=== PATIENT | male | born 1960 | race African-American/Black ===

== ENCOUNTER → 2017-06-15 | Day surgery (SDC) | payer OTHER ==
[2017-06-01 08:16] VITALS: Ht 172.7 cm; Wt 115.9 kg
--- NOTE | 2017-06-01 09:18 | PAT Medication Instructions ---
Service Date Jun 01, 2017. Current Home Medication List Acetaminophen (Tylenol), 500 MG PO DIRECTED PRN for PRN Aluminum Hydroxide-Mag Carb (Acid Gone), 1 DOSE PO QID PRN for PRN Amlodipine (Norvasc), 5 MG PO QAM Ascorbic Acid (Vitamin C 500 mg), 1 DOSE PO QAM Atenolol (Tenormin), 25 MG PO QAM Azathioprine (Imuran), 50 MG PO QAM Calcium Carbonate (Calcium), 1 TAB PO QAM Certolizumab Pegol (Cimzia), 1 DOSE SC DIRECTED Cholecalciferol (Vitamin D3), 2,000 UNITS PO QAM Cyanocobalamin (Vitamin B12), 1 TAB PO QAM Ferrous Sulfate (Iron), 325 MG PO QAM Folic Acid (Folvite), 1 MG PO DAILY Furosemide (Lasix), 40 MG PO BID Lactobacillus (Acidophilus), 2 TAB PO BID Lisinopril (Zestril), 40 MG PO QAM Meloxicam (Mobic), 15 MG PO QAM PRN for Pain Multivitamin (Multivitamin), 1 TAB PO DAILY Pantoprazole (Protonix), 40 MG PO BID Lurdztonk-Vkkyxecmcnypb-Gqgbuq (Hemorrhoidal), TOP TID Pravastatin Sod (Pravastatin Sodium), 40 MG PO HS Prednisone (Prednisone), 5 MG PO QAM Prednisone (Prednisone), 50 MG PO BID Propylene Glycol-Glycerin (Artificial Tears), 1 DROP OPB BID Pyridoxine (Vitamin B6), 100 MG PO QAM Medication Instructions For Your Scheduled Surgery - Check with surgeon (Dr. Bonilla) for instructions: Meloxicam (Mobic), 15 MG PO QAM PRN for Pain - Check with prescribing physician for instructions: Certolizumab Pegol (Cimzia), 1 DOSE SC DIRECTED Azathioprine (Imuran), 50 MG PO QAM - Hold the following medications 24 hours prior to surgery: Udfizvaix-Heioxorghldam-Wclxwk (Hemorrhoidal), TOP TID - Hold the following medications the morning of surgery: Aluminum Hydroxide-Mag Carb (Acid Gone), 1 DOSE PO QID PRN for PRN Ascorbic Acid (Vitamin C 500 mg), 1 DOSE PO QAM Calcium Carbonate (Calcium), 1 TAB PO QAM Cholecalciferol (Vitamin D3), 2,000 UNITS PO QAM Cyanocobalamin (Vitamin B12), 1 TAB PO QAM Ferrous Sulfate (Iron), 325 MG PO QAM Folic Acid (Folvite), 1 MG PO DAILY Furosemide (Lasix), 40 MG PO BID Lactobacillus (Acidophilus), 2 TAB PO BID Lisinopril (Zestril), 40 MG PO QAM Multivitamin (Multivitamin), 1 TAB PO DAILY Pyridoxine (Vitamin B6), 100 MG PO QAM - Take the following medications the morning of surgery with a sip of water: Propylene Glycol-Glycerin (Artificial Tears), 1 DROP OPB BID Prednisone (Prednisone), 5 MG PO QAM Prednisone (Prednisone), 50 MG PO BID Pantoprazole (Protonix), 40 MG PO BID Atenolol (Tenormin), 25 MG PO QAM Amlodipine (Norvasc), 5 MG PO QAM Acetaminophen (Tylenol), 500 MG PO DIRECTED PRN for PRN (okay to take up to 4 hours prior to surgery if needed) If you have any questions please call us at [phone] or [phone] or [phone]
[~2017-06-15] VITALS: Ht 172.7 cm; Wt 115.9 kg
[~2017-06-15] MED LIST: ALUMCHW PO; AMLO-110 PO; ASCO500C43 PO; ATEN-173 PO; AZAT50TA17 PO; CALC-393 PO; CERTKIT SC; CHOL1000 PO; CYAN100020 PO; FERR1TAB23 PO; FOLI1TAB8 PO; FURO40TA3 PO; LACTTAB7 PO; LIDOCAINE HCL 2% 2 ML VIAL (20MG/ML) ONE; LISI40TA PO; MELO15TA10 PO; MULT-506 PO; PANT40TA PO; PRED-301 PO; PRED50TA PO; PROPDRO5 OPB; PROPOFOL IV EMULSION 10 MG/ML 20 ML VIAL IV ONE; PRVC40 PO; PYRI100T4 PO; TYLOTC500 PO; [UNRECOGNIZED DRUG - CODE] TOP
--- NOTE | 2017-06-15 13:46 | Endo History and Physical ---
History & Physical Date of Service: Jun 15, 2017. Chief Complaint: ULCERATIVE PROCTOID SIGMOIDITIS Referring Physician: RENU CLEVELAND History of Present Illness For flex sig Past Medical History Gastrointestinal Disorder, High Cholesterol, Hypertension Past Surgical History Hx Cardiac Surgery: No Hx Internal Defibrillator: No Hx Pacemaker: No Hx Abdominal Surgery: No Hx Post-Op Nausea and Vomiting: No Hx Cancer Surgery: No Hx Thoracic Surgery: No Hx Orthopedic: Yes (LEFT TKA) Hx Urinary Tract Surgery: No Social History Smoking Status: Former Smoker Hx Substance Use: Yes Hx Alcohol Use: No Allergies Coded Allergies: No Known Allergies (Verified , 06/15/17) Current Medications Reported Home Medications Medications Dose Route/Sig Max Daily Dose Days Date Category Prednisone 50 Mg Tab 50 Mg PO BID 06/01/17 Reported Hemorrhoidal (Mphbkellq-Bdcpgnmgjrzzt-Bnoncq) 1 Cre Cre TOP TID 06/01/17 Reported Folvite (Folic Acid) 1 Mg Tab 1 Mg PO DAILY 06/01/17 Reported Cimzia (Certolizumab Pegol) 200 Mg Kit 1 Dose SC DIRECTED 01/11/17 Reported Vitamin D3 (Cholecalciferol) 1,000 Unit Tab 2,000 Units PO QAM 01/11/17 Reported Vitamin C 500 mg (Ascorbic Acid) 1 Chw Chw 1 Dose PO QAM 01/11/17 Reported Vitamin B12 (Cyanocobalamin) 1,000 Mcg Tab 1 Tab PO QAM 01/11/17 Reported Vitamin B6 (Pyridoxine HCl) 100 Mg Tab 100 Mg PO QAM 01/11/17 Reported Prednisone 5 Mg Tab 5 Mg PO QAM 01/11/17 Reported Pravastatin Sodium (Pravastatin Sod) 40 Mg Tab 40 Mg PO HS 01/11/17 Reported Protonix (Pantoprazole Sodium) 40 Mg Tab 40 Mg PO BID 01/11/17 Reported Multivitamin (Multivitamins) Tab 1 Tab PO DAILY 01/11/17 Reported Mobic (Meloxicam) 15 Mg Tab 15 Mg PO QAM PRN 01/11/17 Reported Zestril (Lisinopril) 40 Mg Tab 40 Mg PO QAM 01/11/17 Reported Lasix (Furosemide) 40 Mg Tab 40 Mg PO BID 01/11/17 Reported Iron (Ferrous Sulfate) 325 Mg Tab 325 Mg PO QAM 01/11/17 Reported Calcium (Calcium Carbonate) 600 Mg Tab 1 Tab PO QAM 01/11/17 Reported Imuran (Azathioprine) 50 Mg Tab 50 Mg PO QAM 01/11/17 Reported Tenormin (Atenolol) 25 Mg Tab 25 Mg PO QAM 01/11/17 Reported Artificial Tears (Propylene Glycol-Glycerin) 1 Skip Skip 1 Drop OPB BID 01/11/17 Reported Norvasc (Amlodipine Besylate) 5 Mg Tab 5 Mg PO QAM 01/11/17 Reported Acidophilus (Lactobacillus) 1 Tab Tab 2 Tab PO BID 01/11/17 Reported Acid Gone (Aluminum Hydroxide-Mag Carb) 1 Chw Chw 1 Dose PO QID PRN 01/11/17 Reported Tylenol (Acetaminophen) 500 Mg Tab 500 Mg PO DIRECTED PRN 01/11/17 Reported Vital Signs Weight (Kilograms): 115.91 Height (Feet): 5 Height (Inches): 8 Date Time Temp Pulse Resp B/P (MAP) Pulse Ox O2 Delivery O2 Flow Rate FiO2 06/15/17 13:20 36.5 76 16 147/87 (107) 96 Room Air Physical Exam General Appearance: + obese Respiratory/Chest: Respiratory effort: no dyspnea Cardiovascular: Heart Auscultation: RRR Abdomen: Inspection & Palpation: soft Assessment and Plan Active UC for disease assessment
--- NOTE | 2017-06-15 14:13 | Discharge Instructions ---
Endoscopy Patient Instructions Date / Procedure(s) Performed Jun 15, 2017. Flex Sig Allergy Information Coded Allergies: No Known Allergies (Verified , 06/15/17) Discharge Date / Findings Jun 15, 2017. Mild colitis to 30 cm Medication Instructions Restart Stopped Medication(s): resume meds Reported Home Medications Medications Dose Route/Sig Max Daily Dose Days Date Category Prednisone 50 Mg Tab 50 Mg PO BID 06/01/17 Reported Hemorrhoidal (Tinjvfuli-Vdfegehewqljr-Wofyri) 1 Cre Cre TOP TID 06/01/17 Reported Folvite (Folic Acid) 1 Mg Tab 1 Mg PO DAILY 06/01/17 Reported Cimzia (Certolizumab Pegol) 200 Mg Kit 1 Dose SC DIRECTED 01/11/17 Reported Vitamin D3 (Cholecalciferol) 1,000 Unit Tab 2,000 Units PO QAM 01/11/17 Reported Vitamin C 500 mg (Ascorbic Acid) 1 Chw Chw 1 Dose PO QAM 01/11/17 Reported Vitamin B12 (Cyanocobalamin) 1,000 Mcg Tab 1 Tab PO QAM 01/11/17 Reported Vitamin B6 (Pyridoxine HCl) 100 Mg Tab 100 Mg PO QAM 01/11/17 Reported Prednisone 5 Mg Tab 5 Mg PO QAM 01/11/17 Reported Pravastatin Sodium (Pravastatin Sod) 40 Mg Tab 40 Mg PO HS 01/11/17 Reported Protonix (Pantoprazole Sodium) 40 Mg Tab 40 Mg PO BID 01/11/17 Reported Multivitamin (Multivitamins) Tab 1 Tab PO DAILY 01/11/17 Reported Mobic (Meloxicam) 15 Mg Tab 15 Mg PO QAM PRN 01/11/17 Reported Zestril (Lisinopril) 40 Mg Tab 40 Mg PO QAM 01/11/17 Reported Lasix (Furosemide) 40 Mg Tab 40 Mg PO BID 01/11/17 Reported Iron (Ferrous Sulfate) 325 Mg Tab 325 Mg PO QAM 01/11/17 Reported Calcium (Calcium Carbonate) 600 Mg Tab 1 Tab PO QAM 01/11/17 Reported Imuran (Azathioprine) 50 Mg Tab 50 Mg PO QAM 01/11/17 Reported Tenormin (Atenolol) 25 Mg Tab 25 Mg PO QAM 01/11/17 Reported Artificial Tears (Propylene Glycol-Glycerin) 1 Skip Skip 1 Drop OPB BID 01/11/17 Reported Norvasc (Amlodipine Besylate) 5 Mg Tab 5 Mg PO QAM 01/11/17 Reported Acidophilus (Lactobacillus) 1 Tab Tab 2 Tab PO BID 01/11/17 Reported Acid Gone (Aluminum Hydroxide-Mag Carb) 1 Chw Chw 1 Dose PO QID PRN 01/11/17 Reported Tylenol (Acetaminophen) 500 Mg Tab 500 Mg PO DIRECTED PRN 01/11/17 Reported Provider Instructions Activity Restrictions - No exercising or heavy lifting for 24 hours. - Do not drink alcohol the day of the procedure. - Do not drive a car or operate machinery until the day after the procedure. - Do not make any important decisions or sign important papers in 24 hours after the procedure. Following Day: - Return to full activity which may include returning to work/school. Diet Start your diet with liquids and light foods (jello, soup, juice, toast). Then eat your usual diet if not nauseated. Treatment For Common After Affects For mild abdominal pain, bloating, or excessive gas: - Rest - Eat lightly - Lie on right side Follow-Up Information Follow-up with RENU CLEVELAND as scheduled Anesthesia Information What You Should Know You have had a procedure that required some medicine to reduce anxiety and discomfort. This treatment is called moderate sedation. After receiving the treatment, you may be sleepy, but you will be able to breathe on your own. The effects of the treatment may last for several hours. Follow these instructions along with Activity/Diet recommendations noted above: * Do NOT do anything where dizziness or clumsiness would be dangerous. * Rest quietly at home today, then you can be up and about tomorrow. * Have a responsible person stay with you the rest of today. * You may have had an I.V. today. If so, you may take the dressing off later today. Recommendations Call your doctor if: * Trouble breathing * Continuous vomiting for more than 24 hours * Temperature above 101 degrees * Severe abdominal pain or bloating * Pain not relieved by pain medicine ordered * There is increased drainage or redness from any incision * A large amount of rectal bleeding greater than 2-3 tablespoons. (If you had a polyp/s removed or have hemorrhoids, a small amount of blood - from the rectum is to be expected.) * You have any unanswered questions or concerns. IN THE EVENT OF A SERIOUS EMERGENCY, GO TO THE NEAREST EMERGENCY ROOM Your discharge instructions were prepared by provider Dagoberto Bonilla. Patient Instructions Signature Page Rod Crystal Patient (or Guardian) Signature/Date: I have read and understand the instructions given to me by my caregivers. Caregiver/RN/Doctor Signature/Date: The above-named patient and/or guardian has received patient instructions on this date. + Original Patient Signature Page (only) stays with chart. Please make copy for patient.
--- NOTE | 2017-06-15 14:25 | GI REPORT ---
Procedure Date: 06/15/2017 1:49 PM Procedure: Flexible Sigmoidoscopy Indications: Chronic ulcerative proctosigmoiditis, Disease activity assessment of chronic ulcerative proctosigmoiditis, Assess therapeutic response to therapy of chronic ulcerative proctosigmoiditis Medicines: Propofol total dose 280 mg IV, Lidocaine 40 mg IV Complications: No immediate complications. Estimated Blood Loss: Estimated blood loss: none. Procedure: Pre-Anesthesia Assessment: - Prior to the procedure, a History and Physical was performed, and patient medications, allergies and sensitivities were reviewed. The patient's tolerance of previous anesthesia was reviewed. - The risks and benefits of the procedure and the sedation options and risks were discussed with the patient. All questions were answered and informed consent was obtained. After obtaining informed consent, the endoscope was passed under direct vision. Throughout the procedure, the patient's blood pressure, pulse, and oxygen saturations were monitored continuously. The scope was introduced through the anus and advanced to the splenic flexure. The flexible sigmoidoscopy was accomplished without difficulty. The patient tolerated the procedure well. The quality of the bowel preparation was fair. Findings: A diffuse area of mildly atrophic and granular mucosa was found in the rectum, in the sigmoid colon and in the distal descending colon. Impression: - Preparation of the colon was fair. - Atrophic and granular mucosa in the rectum, in the sigmoid colon and in the distal descending colon. - No specimens collected. Recommendation: - Discharge patient to home (ambulatory). - Continue present medications. - Return to GI office as previously scheduled. Dagoberto Bonilla M.D. Dagoberto Bonilla MD 06/15/2017 2:24:35 PM This report has been signed electronically. Note Initiated On: 06/15/2017 1:49 PM I attest to the content of the Intraoperative Record and orders documented therein, exceptions below
--- NOTE | 2017-06-15 14:27 | Anesthesiology Progress Note ---
Anesthesia Post Op Note Date & Time Jun 15, 2017 at 14:26 Vital Signs Pain Intensity: 4 Vital Signs Past 12 Hours Date Time Temp Pulse Resp B/P (MAP) Pulse Ox O2 Delivery O2 Flow Rate FiO2 06/15/17 14:21 70 16 131/84 (100) 96 Room Air 06/15/17 14:10 81 16 127/82 (97) 93 Room Air 06/15/17 13:20 36.5 76 16 147/87 (107) 96 Room Air Notes Mental Status: alert / awake / arousable, participated in evaluation Pt Amnestic to Procedure: Yes Nausea / Vomiting: adequately controlled Pain: adequately controlled Airway Patency, RR, SpO2: stable & adequate BP & HR: stable & adequate Hydration State: stable & adequate Anesthetic Complications: no major complications apparent
[2017-06-15 14:30] VITALS: BP 135/90; PULSE 76; O2SAT 93
== END | disposition home or self-care (01) ==
LOC: C.GI 12:41
PROVIDERS: ATTEND Internal Medicine Gastroenterology
DX: K51.30 Ulcerative (chronic) rectosigmoiditis without complications (principal); K62.89 Other specified diseases of anus and rectum; I10 Essential (primary) hypertension; Z96.652 Presence of left artificial knee joint; Z87.891 Personal history of nicotine dependence; Z79.899 Other long term (current) drug therapy

== ENCOUNTER 2021-10-15 06:55 | Observation (INO) ==
--- NOTE | 2021-06-22 16:04 | History & Physical Report ---
Date of Service June 22, 2021 Assessment & Plan (1) Osteoarthritis of right knee: Plan: Schedule a right TKA for 06.25.21. All potential risks, benefits, complications, alternatives, and rehab have been discussed with the patient and he wishes to proceed. Plan for ASA 81 mg BID x 4 wks for post op DVT prophylaxis. (2) Genu varum of right lower extremity: History of Present Illness Chief Complaint: right knee pain Primary Care Provider: NO PCP This is a patient with a hx of chronic right knee pain. He has been treated conservatively for right knee DJD for many years. The conservative tx's are no longer helping his knee pain. He is now being set up for surgical tx. Allergies Allergy/AdvReac Type Severity Reaction Status Date / Time No Known Allergies Allergy Verified 06/15/17 13:16 Home Medications Medication Instructions Recorded Confirmed Type Lactobacillus acidophilus 2,000 mmu cells PO BID 06/22/21 06/22/21 History aluminum hydrox-magnesium carb 160 2 tab PO QID PRN 06/22/21 06/22/21 History mg-105 mg chewable tablet (Gaviscon Extra Strength) ascorbic acid (vitamin C) 500 mg 500 mg PO DAILY 06/22/21 06/22/21 History tablet (Vitamin C) aspirin 81 mg tablet 81 mg PO DAILY 06/22/21 06/22/21 History atenolol 25 mg tablet 25 mg PO BID 06/22/21 06/22/21 History azathioprine 50 mg tablet (Imuran) 100 mg PO DAILY 06/22/21 06/22/21 History bumetanide 2 mg tablet 2 mg PO DAILY 06/22/21 06/22/21 History calcium 600 mg capsule 600 mg PO DAILY 06/22/21 06/22/21 History celecoxib 200 mg capsule (Celebrex) 200 mg PO BID 06/22/21 06/22/21 History certolizumab pegol (Cimzia) 200 mg SUBCUT UD 06/22/21 06/22/21 History cholecalciferol (vitamin D3) 25 50 mcg PO DAILY 06/22/21 06/22/21 History mcg (1,000 unit) tablet (Vitamin D3) cyanocobalamin (vitamin B-12) 1,000 mcg SUBLINGUAL DAILY 06/22/21 06/22/21 History 1,000 mcg sublingual tablet ferrous sulfate 325 mg (65 mg 325 mg PO DAILY 06/22/21 06/22/21 History iron) tablet folic acid 1 mg tablet 1 mg PO DAILY 06/22/21 06/22/21 History ketotifen fumarate 0.025 % (0.035 1 drp OPHTHALMIC (EYE) BID PRN 06/22/21 06/22/21 History %) eye drops loratadine 10 mg tablet 10 mg PO DAILY 06/22/21 06/22/21 History losartan 25 mg tablet 25 mg PO DAILY 06/22/21 06/22/21 History multivitamin 1 tab PO DAILY 06/22/21 06/22/21 History omeprazole 40 mg capsule,delayed 40 mg PO BID 06/22/21 06/22/21 History release pravastatin 40 mg tablet 40 mg PO HS 06/22/21 06/22/21 History pyridoxine (vitamin B6) 100 mg 100 mg PO DAILY 06/22/21 06/22/21 History tablet (Vitamin B-6) Past Med/Surg History Medical History Eye disorder GERD (gastroesophageal reflux disease) Hyperlipidemia Hypertension Inmate in correctional facility Obesity Onychomycosis Osteoarthritis Pernicious anemia Rhinitis Sciatica Ulcerative colitis Surgical History Surgical history unknown Social History Smoking Status: Unknown if ever smoked Current Living Situation: Other Physical Exam Constitutional: well developed and well nourished; no acute distress ENMT: external ear and nose normal, oropharynx normal Neck: trachea midline Respiratory: normal respiratory effort, lungs clear to auscultation Cardiovascular: Rate/Rhythm: regular rate and regular rhythm Gastrointestinal (Abdomen): normal bowel sounds, soft, nontender, no hepatosplenomegaly Musculoskeletal: Knee: + knee ROM with crepitation (right), + joint line tenderness (right medial and lateral joint lines) and + varus alignment (right); no skin erythema and no ecchymosis Skin: no rashes, warm and dry Trauma: no evidence of skin trauma Neurologic: normal touch/pain/proprioception Psychiatric: A+Ox3, euthymic affect Speech: normal rate/rhythm/volume of speech Lymphatic: no cervical or axillary lymphadenopathy
--- NOTE | 2021-06-23 14:09 | Anesthesiology Consultation ---
Date of Service June 23, 2021 Assessment & Plan (1) Encounter for pre-operative examination: Chart Review Chart Review: Pending: Refer to Additional Notes / Consult section (cardiac clearance ([facility] setting up), preop labs results and preop Covid testing results ) and Patient NOT seen in Pre Admission Testing - Discussed preop EKG with Dr. Laird (TWI noted in inferior and anterolateral leads- worse from previous EKGs)- will need cardiac clearance prior to surgery. Discussed with RENU Sanders- will send over cardio clearance request form. [facility] will set up cardiac clearance once approved by [facility]. Did request [facility] call us with date of cardiac clearance appt. Pt will need postponed for surgery (unable to get cardio appt prior to 06/25/21). Surgeon's office was informed- did instruct surgeon's office to call [facility] once patient's 06/25/21 surgery was officially cancelled. -Pt had preop labs drawn 06/21/21- results still pending- will need results prior to new surgery date in order for patient to proceed with surgery. Per nursing assessment 06/22/21, patient resides at [facility]. No known recent travel. No known Covid positive exposures or Covid related symptoms. No known Covid infection in the past 90 days. Pt is fully vaccinated for Covid. Pt will need Covid testing done 2-4 days prior to surgery- will await results. Consults Requested cardiac (secondary to abnormal EKG ) History Surgery Operation Date: 06/25/21 09:05 Proposed Procedures p Right Total Knee Arthroplasty - Ben Kolb DO Height/Weight Height: 5 ft 8 in Weight: 140.614 kg Allergies Allergy/AdvReac Type Severity Reaction Status Date / Time No Known Allergies Allergy Verified 06/15/17 13:16 Medications Home Medications Medication Instructions Recorded Confirmed Last Taken Lactobacillus acidophilus 2,000 mmu cells PO BID 06/22/21 06/22/21 Unknown aluminum hydrox-magnesium carb 160 2 tab PO QID PRN 06/22/21 06/22/21 Unknown mg-105 mg chewable tablet (Gaviscon Extra Strength) ascorbic acid (vitamin C) 500 mg 500 mg PO DAILY 06/22/21 06/22/21 Unknown tablet (Vitamin C) aspirin 81 mg tablet 81 mg PO DAILY 06/22/21 06/22/21 Unknown atenolol 25 mg tablet 25 mg PO BID 06/22/21 06/22/21 Unknown azathioprine 50 mg tablet (Imuran) 100 mg PO DAILY 06/22/21 06/22/21 Unknown bumetanide 2 mg tablet 2 mg PO DAILY 06/22/21 06/22/21 Unknown calcium 600 mg capsule 600 mg PO DAILY 06/22/21 06/22/21 Unknown celecoxib 200 mg capsule (Celebrex) 200 mg PO BID 06/22/21 06/22/21 Unknown certolizumab pegol (Cimzia) 200 mg SUBCUT UD 06/22/21 06/22/21 Unknown cholecalciferol (vitamin D3) 25 50 mcg PO DAILY 06/22/21 06/22/21 Unknown mcg (1,000 unit) tablet (Vitamin D3) cyanocobalamin (vitamin B-12) 1,000 mcg SUBLINGUAL DAILY 06/22/21 06/22/21 Unkno wn 1,000 mcg sublingual tablet ferrous sulfate 325 mg (65 mg 325 mg PO DAILY 06/22/21 06/22/21 Unknown iron) tablet folic acid 1 mg tablet 1 mg PO DAILY 06/22/21 06/22/21 Unknown ketotifen fumarate 0.025 % (0.035 1 drp OPHTHALMIC (EYE) BID PRN 06/22/21 06/22/21 Unknown %) eye drops loratadine 10 mg tablet 10 mg PO DAILY 06/22/21 06/22/21 Unknown losartan 25 mg tablet 25 mg PO DAILY 06/22/21 06/22/21 Unknown multivitamin 1 tab PO DAILY 06/22/21 06/22/21 Unknown omeprazole 40 mg capsule,delayed 40 mg PO BID 06/22/21 06/22/21 Unknown release pravastatin 40 mg tablet 40 mg PO HS 06/22/21 06/22/21 Unknown pyridoxine (vitamin B6) 100 mg 100 mg PO DAILY 06/22/21 06/22/21 Unknown tablet (Vitamin B-6) Past Medical History Medical History Eye disorder GERD (gastroesophageal reflux disease) Hyperlipidemia Hypertension Inmate in correctional facility Obesity Onychomycosis Osteoarthritis Pernicious anemia Rhinitis Sciatica Ulcerative colitis Past Surgical History Surgical History Surgical history unknown Social History Smoking Status: Unknown if ever smoked Testing Electrocardiogram Date: 06/17/21 Junctional rhythm at 65 bpm. T wave abnormality, consider inferior and anterolateral ischemia unconfirmed Chest X-Ray Date: 06/16/21 Findings: + NAD
--- NOTE | 2021-10-12 13:02 | Anesthesiology Consultation ---
Date of Service October 12, 2021 Assessment & Plan (1) Encounter for pre-operative examination: Plan - check BSG am DOS. - awaiting cardiology clearance records, previously arranged per 06/23/21 anesthesia consult. - COVID screening: Per billet header on 10/05/2021: Travel screen-inmate, no known COVID-19 positive contacts or current COVID-19 related symptoms in past 2 weeks. Pt vaccinated. Surgeon arranging preop COVID testing, scheduled 10/13/2021. Awaiting results. Chart Review Chart Review: Pending: Refer to Additional Notes / Consult section and Patient NOT seen in Pre Admission Testing History Surgery Operation Date: 10/15/21 07:15 Proposed Procedures p Right Total Knee Arthroplasty - Ben Kolb DO Height/Weight Height: 5 ft 8 in Weight: 140.614 kg Allergies Allergy/AdvReac Type Severity Reaction Status Date / Time No Known Allergies Allergy Verified 06/15/17 13:16 Medications Home Medications Medication Instructions Recorded Confirmed Last Taken Lactobacillus acidophilus 2,000 mmu cells PO BID 06/22/21 10/05/21 Unknown aluminum hydrox-magnesium carb 160 2 tab PO QID PRN REFLUX 06/22/21 10/05/21 Unknown mg-105 mg chewable tablet (Gaviscon Extra Strength) ascorbic acid (vitamin C) 500 mg 500 mg PO QAM 06/22/21 10/05/21 Unknown tablet (Vitamin C) aspirin 81 mg tablet 81 mg PO QAM 06/22/21 10/05/21 Unknown atenolol 25 mg tablet 25 mg PO BID 06/22/21 10/05/21 Unknown azathioprine 50 mg tablet (Imuran) 100 mg PO QAM 06/22/21 10/05/21 Unknown bumetanide 2 mg tablet 2 mg PO QAM 06/22/21 10/05/21 Unknown calcium 600 mg capsule 600 mg PO QAM 06/22/21 10/05/21 Unknown celecoxib 200 mg capsule (Celebrex) 200 mg PO BID 06/22/21 10/05/21 Unknown cholecalciferol (vitamin D3) 25 50 mcg PO QAM 06/22/21 10/05/21 Unknown mcg (1,000 unit) tablet (Vitamin D3) cyanocobalamin (vitamin B-12) 1,000 mcg sublingual QAM 06/22/21 10/05/21 Unknown 1,000 mcg sublingual tablet ferrous sulfate 325 mg (65 mg 325 mg PO QAM 06/22/21 10/05/21 Unknown iron) tablet folic acid 1 mg tablet 1 mg PO QAM 06/22/21 10/05/21 Unknown ketotifen fumarate 0.025 % (0.035 1 drp ophthalmic (eye) BID PRN 06/22/21 10/05/21 Unknown %) eye drops NEEDED loratadine 10 mg tablet 10 mg PO QAM 06/22/21 10/05/21 Unknown losartan 25 mg tablet 25 mg PO QAM 06/22/21 10/05/21 Unknown multivitamin 1 tab PO QAM 06/22/21 10/05/21 Unknown pravastatin 40 mg tablet 40 mg PO HS 06/22/21 10/05/21 Unknown pyridoxine (vitamin B6) 100 mg 100 mg PO QAM 06/22/21 10/05/21 Unknown tablet (Vitamin B-6) certolizumab pegol (Cimzia) 400 mg subcut Q21D 10/05/21 10/05/21 Unknown metformin 850 mg tablet 850 mg PO QAM 10/05/21 10/05/21 Unknown pantoprazole 40 mg tablet,delayed 40 mg PO BID 10/05/21 10/05/21 Unknown release Past Medical History Medical History Diabetes mellitus, type 2 niddm Eye disorder GERD (gastroesophageal reflux disease) Hyperlipidemia Hypertension Inmate in correctional facility Obesity Onychomycosis Osteoarthritis Pernicious anemia Rhinitis Sciatica Ulcerative colitis Past Family History Family History Other Family history unknown Past Surgical History Surgical History Surgical history unknown Social History Smoking Status: Unknown if ever smoked Testing Laboratory Results 10/04/2021 WBC: 6.4 H/H: 14/45 PLATELETS: 176 SODIUM: 141 POTASSIUM: 4 CHLORIDE: 102 CO2: 29 BUN: 15 CREATININE: 1.2 GLUCOSE: 100 PT: 11.4 PTT: 34.3 INR: 1 A1: 6.3% UA: 1+ protein Electrocardiogram Date: 03/24/22 Junctional rhythm, rate 65 bpm T wave abnormality, consider inferior ischemia T wave abnormality, consider anterolateral ischemia Chest X-Ray Date: 06/16/21 Findings: + NAD
--- NOTE | 2021-10-13 16:48 | History & Physical Report ---
Date of Service October 13, 2021 Assessment & Plan (1) Osteoarthritis of right knee: Plan: Schedule a right TKA for 10.13.21. All potential risks, benefits, complications, alternatives, and rehab have been discussed with the patient and he wishes to proceed. Plan for ASA 81 mg BID x 4 wks for post op DVT prophylaxis. (2) Genu varum of right lower extremity: History of Present Illness Chief Complaint: Right knee pain Primary Care Provider: NO PCP This is a patient with a hx of chronic right knee pain. He has been treated conservatively for right knee DJD for many years. The conservative tx's are no longer helping his knee pain. He is now being set up for surgical tx. Allergies Allergy/AdvReac Type Severity Reaction Status Date / Time No Known Allergies Allergy Verified 06/15/17 13:16 Home Medications Medication Instructions Recorded Confirmed Type Lactobacillus acidophilus 2,000 mmu cells PO BID 06/22/21 10/05/21 History aluminum hydrox-magnesium carb 160 2 tab PO QID PRN REFLUX 06/22/21 10/05/21 History mg-105 mg chewable tablet (Gaviscon Extra Strength) ascorbic acid (vitamin C) 500 mg 500 mg PO QAM 06/22/21 10/05/21 History tablet (Vitamin C) aspirin 81 mg tablet 81 mg PO QAM 06/22/21 10/05/21 History atenolol 25 mg tablet 25 mg PO BID 06/22/21 10/05/21 History azathioprine 50 mg tablet (Imuran) 100 mg PO QAM 06/22/21 10/05/21 History bumetanide 2 mg tablet 2 mg PO QAM 06/22/21 10/05/21 History calcium 600 mg capsule 600 mg PO QAM 06/22/21 10/05/21 History celecoxib 200 mg capsule (Celebrex) 200 mg PO BID 06/22/21 10/05/21 History cholecalciferol (vitamin D3) 25 50 mcg PO QAM 06/22/21 10/05/21 History mcg (1,000 unit) tablet (Vitamin D3) cyanocobalamin (vitamin B-12) 1,000 mcg sublingual QAM 06/22/21 10/05/21 History 1,000 mcg sublingual tablet ferrous sulfate 325 mg (65 mg 325 mg PO QAM 06/22/21 10/05/21 History iron) tablet folic acid 1 mg tablet 1 mg PO QAM 06/22/21 10/05/21 History ketotifen fumarate 0.025 % (0.035 1 drp ophthalmic (eye) BID PRN 06/22/21 10/05/21 History %) eye drops NEEDED loratadine 10 mg tablet 10 mg PO QAM 06/22/21 10/05/21 History losartan 25 mg tablet 25 mg PO QAM 06/22/21 10/05/21 History multivitamin 1 tab PO QAM 06/22/21 10/05/21 History pravastatin 40 mg tablet 40 mg PO HS 06/22/21 10/05/21 History pyridoxine (vitamin B6) 100 mg 100 mg PO QAM 06/22/21 10/05/21 History tablet (Vitamin B-6) certolizumab pegol (Cimzia) 400 mg subcut Q21D 10/05/21 10/05/21 History metformin 850 mg tablet 850 mg PO QAM 10/05/21 10/05/21 History pantoprazole 40 mg tablet,delayed 40 mg PO BID 10/05/21 10/05/21 History release Past Med/Surg History Medical History Diabetes mellitus, type 2 niddm Eye disorder GERD (gastroesophageal reflux disease) Hyperlipidemia Hypertension Inmate in correctional facility Obesity Onychomycosis Osteoarthritis Pernicious anemia Rhinitis Sciatica Ulcerative colitis Surgical History Surgical history unknown Family History Other Family history unknown Social History Smoking Status: Unknown if ever smoked Preferred Language: Persian Fur Blower Required: No Current Living Situation: Other Current Living Situation Comment: [facility] Physical Exam Constitutional: well developed and well nourished; no acute distress ENMT: external ear and nose normal, oropharynx normal Neck: trachea midline Respiratory: normal respiratory effort, lungs clear to auscultation Cardiovascular: Rate/Rhythm: regular rate and regular rhythm Gastrointestinal (Abdomen): normal bowel sounds, soft, nontender, no hepatosplenomegaly Musculoskeletal: Knee: + knee ROM with crepitation (right), + joint line tenderness (right medial and lateral joint lines) and + varus alignment (right); no skin erythema and no ecchymosis Skin: no rashes, warm and dry Trauma: no evidence of skin trauma Neurologic: normal touch/pain/proprioception Psychiatric: A+Ox3, euthymic affect Speech: normal rate/rhythm/volume of speech Lymphatic: no cervical or axillary lymphadenopathy
[~2021-10-15 06:55] MED LIST changes: +ACETAMINOPHEN 500 MG TAB PO SCH; -ALUMCHW PO; -AMLO-110 PO; -ASCO500C43 PO; -ATEN-173 PO; -AZAT50TA17 PO; +BUPIVACAINE 0.5 % 5 MG/1 ML PF 10ML VIAL ONE; -CALC-393 PO; -CERTKIT SC; -CHOL1000 PO; -CYAN100020 PO; +CeleBREX 200 MG CAP PO SCH; +FAMOTIDINE 20 MG TAB PO SCH; -FERR1TAB23 PO; -FOLI1TAB8 PO; -FURO40TA3 PO; +GABAPENTIN 600 MG DOSE PO SCH; -LACTTAB7 PO; -LIDOCAINE HCL 2% 2 ML VIAL (20MG/ML) ONE; -LISI40TA PO; +LR 500ML BOLUS, THEN 15ML/HR IV SCH; -MELO15TA10 PO; +METOCLOPRAMIDE HCL 10 MG TABLET PO SCH; -MULT-506 PO; -PANT40TA PO; -PRED-301 PO; -PRED50TA PO; -PROPDRO5 OPB; -PROPOFOL IV EMULSION 10 MG/ML 20 ML VIAL IV ONE; -PRVC40 PO; -PYRI100T4 PO; +ROPIVACAINE 0.5% 5 MG/ML 30 ML VIAL ONE; +ROPIVACAINE 0.5% HCL/PF 150 MG, BUPIVACAINE 0.75% MPF 20 ML, EPINEPHrine 30MG/30ML (OR ... INFIL SCH; +TRANEXAMIC ACID 1,000 MG **IV Intra-op IV SCH; +TRANEXAMIC ACID 1,000 MG **IV Pre-op IV SCH; -TYLOTC500 PO; -[UNRECOGNIZED DRUG - CODE] TOP; +oxyCODONE HCL 10 MG TABCR (OxyCONTIN) PO SCH
[2021-10-15] MEDS ORDERED: ceFAZolin 330 MG/ML 1 GM VIAL ONE (07:02)
[2021-10-15] MEDS ORDERED: ORTHO JOINT ANESTHETIC ONE (07:02)
--- NOTE | 2021-10-15 07:22 | History & Physical Bridge Note ---
Date of Service October 15, 2021 History & Physical Bridge Note I have examined the patient, reviewed the History & Physical and in the interval since the performance of the History & Physical I have noted the following changes of clinical significance: no changes noted with patient condition. Day of surgery changed to 10/15/2021.
[2021-10-15] MEDS ORDERED: MIDAZOLAM HCL 1 MG/ML 2ML VIAL ONE (07:39)
[2021-10-15] MEDS ORDERED: fentaNYL citrate 100 MCG/2 ML VIAL ONE (07:39)
[2021-10-15] MEDS ORDERED: KETAMINE 50 MG/5 ML SYRINGE ONE (07:40)
[2021-10-15] MEDS ORDERED: ATROPINE SULFATE 0.1 MG/ML 10ML SYR IV PRN (08:35)
[2021-10-15] MEDS ORDERED: ONDANSETRON INJ 2 MG/ML 2 ML VIAL IV PRN (08:35)
[2021-10-15] MEDS ORDERED: HYDROmorphone INJ 1 MG/ML SYRINGE IV PRN (08:35)
[2021-10-15] MEDS ORDERED: KETOROLAC 30 MG/ML VIAL IV PRN (08:35)
[2021-10-15] MEDS ORDERED: ePHEDrine sulfate 50 MG/ML AMP IV PRN (08:35)
[2021-10-15] MEDS ORDERED: PHENYLEPHRINE 100MCG/ML 5ML SYR ONE (09:13)
[2021-10-15] MEDS ORDERED: ONDANSETRON INJ 2 MG/ML 2 ML VIAL ONE (09:13)
[2021-10-15] MEDS ORDERED: LIDOCAINE 2% MPF LOCAL 5 ML VIAL INFIL ONE (09:13)
[2021-10-15] MEDS ORDERED: GLYCOPYRROLATE 0.2 MG/ML VIAL ONE (09:13)
[2021-10-15] MEDS ORDERED: PROPOFOL IV EMULSION 10 MG/ML 20 ML VIAL IV ONE ×4 (09:13→11:41)
[2021-10-15] MEDS ORDERED: PROPOFOL IV EMULSION 10 MG/ML 100 ML VIAL IV ONE (10:20)
[2021-10-15] MEDS ORDERED: PHENYLEPHRINE HCL 10 MG/ML VIAL ONE (11:51)
[2021-10-15] MEDS ORDERED: ePHEDrine sulfate 50 MG/ML AMP ONE (11:51)
[2021-10-15] MEDS ORDERED: SODIUM CHLORIDE 0.9% INJ 10 ML VIAL ONE (11:52)
[2021-10-15] MEDS ORDERED: bisacodyL 10 MG SUPP PR PRN (13:00)
[2021-10-15] MEDS ORDERED: NALOXONE HCL 0.4 MG/1 ML VIAL/CARP IV PRN (13:00)
[2021-10-15] MEDS ORDERED: MAGNESIUM HYDROXIDE SUSP 30 ML UDC PO PRN (13:00)
[2021-10-15] MEDS ORDERED: TAMSULOSIN HCL 0.4 MG CAP PO PRN (13:00)
[2021-10-15] MEDS ORDERED: MULTIVITAMIN TAB PO SCH (13:00)
[2021-10-15] MEDS ORDERED: diphenhydrAMINE Capsule 25 MG CAP PO PRN (13:00)
[2021-10-15] MEDS ORDERED: ALUMINUM/MAGNESIUM SUSP 30 ML UDC PO PRN (13:00)
[2021-10-15] MEDS ORDERED: NON-FORMULARY MEDICATION (Aluminum Hydrox-Magnesium Carb [Gaviscon Extra Strength] 160-105 PO PRN (13:00)
[2021-10-15] MEDS ORDERED: METOCLOPRAMIDE HCL INJ 5 MG/ML 2 ML VIAL IV PRN (13:00)
[2021-10-15] MEDS: SODIUM CHLORIDE 0.9% 1000ML 1,000 ML IV SCH ×2 (13:19→22:33)
--- NOTE | 2021-10-15 13:25 | Anesthesiology Progress Note ---
Date of Service October 15, 2021 Anesthesia Post Procedure Vital Signs Vital Signs: Temp Pulse Pulse Resp BP Pulse Ox O2 Del Method 10/15/21 12:49 36.2 C L 72 14 139/78 94 Room Air 10/15/21 12:40 78 12 140/70 94 Room Air 10/15/21 12:30 74 12 131/85 99 Oxymask 10/15/21 12:20 76 14 124/76 99 Oxymask 10/15/21 12:11 36 C L 71 16 153/85 H 93 Oxymask 10/15/21 07:32 36.5 C 66 20 157/95 H 95 Room Air O2 Flow Rate 10/15/21 12:49 10/15/21 12:40 10/15/21 12:30 4 10/15/21 12:20 10 10/15/21 12:11 10 10/15/21 07:32 Pain Intensity Right Knee: Pain Intensity: 2 Transfer of Care Handoff Completed per policy Notes Mental Status: alert / awake / arousable Patient Amnestic to Procedure: Yes Nausea / Vomiting: adequately controlled Pain: adequately controlled Airway Patency, RR, SpO2: stable & adequate BP & HR: stable & adequate Hydration State: stable & adequate Neuraxial Anesthesia: was administered and sensory block is resolving Anesthetic Complications: no major complications apparent
[2021-10-15] MEDS: HYDROmorphone INJ 0.5 MG/0.5 ML SYR IV PRN ×2 (13:37→17:59)
[2021-10-15] MEDS: ONDANSETRON INJ 2 MG/ML 2 ML VIAL IV PRN ×2 (13:37→19:40)
--- NOTE | 2021-10-15 13:37 | XRay Report ---
RIGHT KNEE 2 VIEWS History: Right total knee arthroplasty. Degenerative arthritis. Postop. FINDINGS: The patient is status post a right total knee arthroplasty. The hardware is intact. No frac ture or dislocation. Skin ann and surgical drains are in place. IMPRESSION: Right total knee arthroplasty. No evidence for hardware complication. ACT 112: Negative or not required by law. Electronically signed by: Manjit Jaeger M.D. 10/15/2021 1:35 PM
[2021-10-15] MEDS: oxyCODONE HCL IR 5 MG TAB (IMMEDIATE RELEASE) PO PRN ×2 (14:18→19:41)
[2021-10-15] MEDS: FOLIC ACID 1 MG TAB PO SCH (14:20)
[2021-10-15] MEDS: BUMETANIDE 1 MG TAB PO SCH (14:20)
[2021-10-15] MEDS: CHOLECALCIFEROL 1,000 UNITS 25 MCG TAB PO SCH (14:20)
[2021-10-15] MEDS: DOCUSATE SODIUM 100 MG CAP PO SCH ×2 (14:21→21:56)
[2021-10-15] MEDS: PYRIDOXINE HCL 50 MG TAB PO SCH (14:21)
[2021-10-15] MEDS: CYANOCOBALAMIN (B-12) 500 MCG TABLET PO SCH (14:21)
[2021-10-15] MEDS: FERROUS SULFATE 325 MG TAB PO SCH (14:21)
[2021-10-15] MEDS: PANTOprazole 40 MG TAB PO SCH ×2 (14:21→21:55)
[2021-10-15] MEDS: azaTHIOprine 50 MG TAB PO SCH (14:21)
[2021-10-15] MEDS: CALCIUM CARBONATE 1250MG TAB PO SCH (14:21)
[2021-10-15] MEDS: ATENOLOL 25 MG TABLET PO SCH ×2 (14:21→21:55)
[2021-10-15] MEDS: ASCORBIC ACID 500 MG TAB PO SCH (14:21)
[2021-10-15] MEDS: LOSARTAN POTASSIUM 25 MG TAB PO SCH (14:21)
[2021-10-15] MEDS: ACETAMINOPHEN 500 MG TAB PO SCH ×2 (14:21→21:56)
[2021-10-15] MEDS: LORATADINE 10 MG TAB PO SCH (14:21)
[2021-10-15] MEDS: ASPIRIN 81 MG ECTAB PO SCH ×2 (14:21→21:55)
[2021-10-15] MEDS: MULTIVITAMIN TAB PO SCH (14:21)
[2021-10-15] MEDS: ceFAZolin 2000MG 2,000 MG/15 ML SYR IV SCH ×2 (14:58→22:41)
[2021-10-15] MEDS: KETOROLAC TROMETHAMINE 15 MG/ML VIAL IV PRN (16:25)
[2021-10-15] MEDS ORDERED: PHARMACY GLYCEMIC MGMT CONSULT PRN (16:38)
[2021-10-15] MEDS ORDERED: GLUCOSE 40% GEL 15 GM TUBE PO PRN (17:30)
[2021-10-15] MEDS ORDERED: DEXTROSE 50% 50 ML SYRINGE IV PRN (17:30)
[2021-10-15] MEDS ORDERED: GLUCOSE 10 TAB/TUBE PO PRN (17:30)
[2021-10-15] MEDS ORDERED: GLUCAGON FOR INJ 1 MG VIAL IM PRN (17:30)
[2021-10-15] MEDS ORDERED: CARBOHYDRATES FOR HYPOGLYCEMIA PO PRN (17:30)
[2021-10-15] MEDS: INSULIN ASPART PER UNIT SC SCH ×2 (17:58→21:34)
[2021-10-15] MEDS ORDERED: PROMETHAZINE HCL 12.5 MG in SODIUM CHLORIDE 0.9% 50 ML IV PRN (18:50)
[2021-10-15] MEDS ORDERED: PRAVASTATIN SOD 40 MG TAB PO SCH (21:00)
[2021-10-15] MEDS ORDERED: SENNA 8.6 MG TAB PO SCH (21:00)
--- NOTE | 2021-10-16 01:02 | Operative Report (OR) ---
DATE OF PROCEDURE: 10/15/2021 PREOPERATIVE DIAGNOSES: 1. Right knee osteoarthritis. 2. Flexion contracture. 3. Genu varum. 4. BMI 45 to 50. POSTOPERATIVE DIAGNOSES: 1. Right knee osteoarthritis. 2. Flexion contracture. 3. Genu varum. 4. BMI 45 to 50. PROCEDURE: 1. Right total knee arthroplasty using [employer] knee with size 8 femur, size 8 tibia, 12 mm posterior stabilized polyethylene, 41 mm round patella, and a 10 x 70 mm accessory tibial stem. 2. Release of flexion contractures. 3. Advanced difficulty due to high BMI and enlarged body habitus. SURGEON: Ben Kolb DO MEDICATION AIDE: Eddie Ortiz PA-C, who was present for patient positioning, sterile prep and drape, management of retractors and instruments. Enhanced difficulty of the case was mitigated by use of the PA due to extra time and effort related to management of instruments, retractors and significant enhancement in duration of dissection. He was present through the critical portions of the case including wound closure, application of sterile dressing and transport of the patient to recovery. ANESTHESIA: Spinal MAC, regional. SPECIMENS: Bone and tissue, right knee. DRAINS: Hemovac x2. COMPLICATIONS: None with the exception of advanced level of difficulty. BLOOD LOSS: 20 mL. PERTINENT HISTORY: This is a 60-year-old detention inmate with history of chronic right knee pain for 4-5 years. He has had conservative management including steroid injections, anti-inflammatories, rest, modification of activities, use of a brace, use of an assistive device, ice, heat, elevation, and physician- directed home exercises. The patient has failed all conservative management. Radiographs demonstrate [id number] arthropathy of the right knee with genu varum, fixed flexion contracture, and enlarged soft tissue shadow. The patient was scheduled for surgery as indicated. All potential risks, benefits, complications, alternatives, rehab potential for incomplete relief of symptoms, need for further surgery, DVT, PE, , persistent pain, swelling, scarring, weakness, neurovascular injury, wound complications, hardware failure, nonunion, malunion, and bone fracture were discussed with the patient. The patient decided to proceed with the procedure as indicated. DESCRIPTION OF PROCEDURE: The patient was taken to the Operative Suite and placed supine on the operating table after spinal epidural was initiated. Next, tourniquet was placed high on the right thigh over cast padding and the patient was sedated. The right lower extremity was then sterilely prepped and draped in the usual fashion. It was elevated and exsanguinated with an Esmarch bandage and tourniquet inflated to 350 mmHg. Next, a 10-blade scalpel incision was made along the anterior midline of the right knee with incision deep through the significantly thickened adipose and subcutaneous tissue. Meticulous hemostasis was utilized with electrocautery for an extended time compared to typical patients with far lower BMI. Full thickness skin flaps were developed both medially and laterally and 10-blade scalpel was used to make a median parapatellar incision in the extensor. The patella was everted with difficulty due to the patient's large body habitus and enhanced BMI and extensive soft tissue releases were performed to allow eversion of the patella. The medial collateral ligament was noted to be moderately contracted so this was partially released using pie-crusting technique with electrocautery and the Wall elevator was placed along the posterior aspect of the posterior medial joint capsule releasing any contractures of the posterior medial proximal tibia. Next, the patella was everted and resurfaced using sagittal saw and orthogonal cuts. After caliper measured 31 mm, residual patella was approximately 18 mm and 41 mm button trial was placed and then drilled. Next, the appropriate retractors were placed and the femoral patient matched cutting block was pinned to the distal aspect of the femur. The distal femoral cut was made and pinned with pins and the distal femoral cutting guide was removed. The 4-in-1 cutting block was then pinned in place and anterior, posterior, anterior chamfer, and posterior chamfer cuts were made. Block and bone fragments were then removed followed by exposure of the proximal tibia. Sharp Hohmann was used to place just posterior to the tibia to protract it. Medial and lateral sharp Hohmann's were placed to protect the collateral ligaments and the surrounding soft tissue and the tibial cutting block was then pinned in place. Tibial alignment vielka was utilized to confirm alignment and the proximal tibia was then cut made with sagittal saw. Fragment was removed. The Size 8 tibial trial was pinned in place and circumferential proximal release was performed with electrocautery around the proximal tibia. Next, the femoral trial was placed within appropriate medial and lateral alignment and then the cutting block was then put into place. It was reamed and box cut was performed. Excess bony debris was removed from the femoral notch. The insert was placed into the distal aspect of the femur. Trial poly Size 12 mm was placed in the proximal tibia. The knee was reduced. Trial poly Size 41 mm was placed in the patella. The knee was reduced. Excellent alignment and range of motion was achieved with correction of the genu varum and flexion contracture was achieved. Of note, +2 distal femoral cut was performed as a result of his flexion contracture prior to placement of the 4-in-1 cutting block. Next, all components were removed. The Orthomix was injected into the posterior capsule and anterior aspect of the capsule. Next, the wound was lavaged with pulsatile lavage and all surfaces were suctioned and dried. Palacos-G cement was placed in the distal femur, proximal tibia, patella, and then a small amount was placed in the canal of the tibia. All implants were impacted into place in a stable fashion. Excess cement was removed from the joint. The patellar button was cemented and clamped in place. After sufficient drying time elapsed a 10-Indonesian double lumen Hemovac drain was placed in the anterolateral aspect of the knee. The extensor mechanism was closed using interrupted #1 Vicryl. The dermis was closed using buried interrupted 2-0 Vicryl. The skin was closed with skin ann. Sterile compressive dressing from the toes to the groin was applied. The tourniquet was released. The patient was awakened and taken to the Recovery Room in stable condition. Job ID: [id number] [facility]
[2021-10-16] MEDS: oxyCODONE HCL IR 5 MG TAB (IMMEDIATE RELEASE) PO PRN ×3 (02:47→13:48)
[2021-10-16] MEDS: ACETAMINOPHEN 500 MG TAB PO SCH ×2 (06:06→14:38)
[2021-10-16] MEDS: KETOROLAC TROMETHAMINE 15 MG/ML VIAL IV PRN (06:07)
--- NOTE | 2021-10-16 06:32 | Orthopedic Progress Note ---
Date of Service October 16, 2021 Assessment & Plan (1) Status post total right knee replacement: Plan: POD #1 s/p right TKA pt/ot dvt proph with JACK/SCD/ASA plan for d/c later today Admission and Anticipated Discharge Date Admission Date: October 15, 2021 Subjective POD #1 s/p Right TKA Review of Systems Constitutional: no fever, no chills and no sweats Respiratory: no cough and no dyspnea Cardiovascular: no chest pain and no dyspnea Gastrointestinal: no abdominal pain, no nausea and no vomiting Physical Exam Physical Exam: Vital Signs Temp Pulse Pulse Resp BP Pulse Ox O2 Del Method 10/16/21 02:48 36.7 C 68 18 124/69 94 Room Air 10/15/21 22:36 36.8 C 83 16 166/83 H 94 Room Air 10/15/21 20:44 36.4 C L 86 16 169/80 H 93 Room Air 10/15/21 16:00 75 18 176/81 H 97 Room Air 10/15/21 14:58 36.4 C L 75 18 149/82 H 97 Room Air 10/15/21 14:00 76 18 138/83 94 Room Air 10/15/21 13:00 36.4 C L 76 18 162/70 H 94 Room Air 10/15/21 13:29 36.4 C L 64 16 140/77 94 Room Air 10/15/21 12:49 36.2 C L 72 14 139/78 94 Room Air 10/15/21 12:40 78 12 140/70 94 Room Air 10/15/21 12:30 74 12 131/85 99 Oxymask 10/15/21 12:20 76 14 124/76 99 Oxymask 10/15/21 12:11 36 C L 71 16 153/85 H 93 Oxymask 10/15/21 07:32 36.5 C 66 20 157/95 H 95 Room Air O2 Flow Rate 10/16/21 02:48 10/15/21 22:36 10/15/21 20:44 10/15/21 16:00 10/15/21 14:58 10/15/21 14:00 10/15/21 13:00 10/15/21 13:29 10/15/21 12:49 10/15/21 12:40 10/15/21 12:30 4 10/15/21 12:20 10 10/15/21 12:11 10 10/15/21 07:32 Intake and Output 10/15/21 10/15/21 10/16/21 14:59 22:59 06:59 Intake Total 2374.167 / 3346.33 4 972.167 / 3346.334 Output Total 30 / 1680 750 / 1680 900 / 1680 Balance 2344.167 / 1666.33 4 222.167 / 1666.334 -900 / 1666.334 Intake: IV 274.167 / 1246.334 972.167 / 1246.334 Lactated Ringe r's 1,000 ml @ 15 0 / 0 mls/hr IV .Q24 H [facility] Rx#: [id number] Promethazine H Cl 12.5 mg In 50.5 / 50.5 Sodium Chlorid e 0.9% 50 ml @ 202 mls/hr IV Q6H PRN Rx#: [id number] Sodium Chlorid e 0.9% 1000ML 1, 1.667 / 923.334 921.667 / 923.334 000 ml @ 100 m ls/hr IV .Q10H [facility] Rx#:[id number] Tranexamic Aci d / 0.7% NaCl 1, 200 / 200 000 mg In 100 ml @ 600 mls/hr IV TODAY@0600 [facility] Rx#:[id number] ceFAZolin 3000 MG 72.5 ml @ 130 72.5 / 72.5 mls/hr IV PREO P [facility] Rx#: [id number] IV Perioperative 2100 / 2100 Output: Estimated Blood Loss 30 / 30 Urine Amount (Ca theter) 700 / 1200 500 / 1200 Straight 700 / 1200 500 / 1200 Drain Output 50 / 450 400 / 450 Right Knee 50 / 450 400 / 450 Other: # Emeses 2 Weight 139.7 kg Weight Measureme nt Method Standing Scale Patient Weight 10/16/21 06:59 Weight 139.7 kg Musculoskeletal: Right Leg: NVDI, calf SNT, negative milton sign. DP palpable, able to wiggle toes/ankle movement without difficulty. dressing clean dry and intact. Results & Data ([facility]) Vital Signs (Past 12 Hours) Vital Signs Temp Pulse Resp BP Pulse Ox O2 Del Method 10/16/21 02:48 36.7 C 68 18 124/69 94 Room Air 10/15/21 22:36 36.8 C 83 16 166/83 H 94 Room Air 10/15/21 20:44 36.4 C L 86 16 169/80 H 93 Room Air Diagnostic Findings Laboratory Results POC Glucose 134 mg/dl (70-99) H 10/15/21 20:46 Nasal Screen MRSA (PCR) Positive (Negative) A 10/15/21 15:05 SARS-CoV-2, RNA, NAAT NEGATIVE (NEGATIVE) 10/15/21 06:58 Blood Type O Positive 10/15/21 07:55 Antibody Screen NEGATIVE 10/15/21 07:55 Impressions Knee X-Ray 10/15/21 08:57 RIGHT KNEE 2 VIEWS History: Right total knee arthroplasty. Degenerative arthritis. Postop. FINDINGS: The patient is status post a right total knee arthroplasty. The hardware is intact. No fracture or dislocation. Skin ann and surgical drains are in place. IMPRESSION: Right total knee arthroplasty. No evidence for hardware complication. ACT 112: Negative or not required by law. Electronically signed by: Manjit Jaeger M.D. 10/15/2021 1:35 PM
[2021-10-16] MEDS: INSULIN ASPART PER UNIT SC SCH ×2 (08:56→14:12)
[2021-10-16] MEDS ORDERED: CeleBREX 200 MG CAP PO SCH (09:00)
[2021-10-16] MEDS ORDERED: ADVANCED PROBIOTIC 1250 MG CAPSULE PO SCH (09:00)
[2021-10-16] MEDS ORDERED: metFORMIN HCL 850 MG TAB PO SCH ×2 (09:00→12:30)
[2021-10-16] MEDS: PANTOprazole 40 MG TAB PO SCH (09:01)
[2021-10-16] MEDS: DOCUSATE SODIUM 100 MG CAP PO SCH (09:01)
[2021-10-16] MEDS: ATENOLOL 25 MG TABLET PO SCH (09:01)
[2021-10-16] MEDS: CALCIUM CARBONATE 1250MG TAB PO SCH (09:02)
[2021-10-16] MEDS: LOSARTAN POTASSIUM 25 MG TAB PO SCH (09:02)
[2021-10-16] MEDS: BUMETANIDE 1 MG TAB PO SCH (09:02)
[2021-10-16] MEDS: ASCORBIC ACID 500 MG TAB PO SCH (09:02)
[2021-10-16] MEDS: MULTIVITAMIN TAB PO SCH (09:02)
[2021-10-16] MEDS: CHOLECALCIFEROL 1,000 UNITS 25 MCG TAB PO SCH (09:02)
[2021-10-16] MEDS: FERROUS SULFATE 325 MG TAB PO SCH (09:02)
[2021-10-16] MEDS: azaTHIOprine 50 MG TAB PO SCH (09:02)
[2021-10-16] MEDS: FOLIC ACID 1 MG TAB PO SCH (09:02)
[2021-10-16] MEDS: LORATADINE 10 MG TAB PO SCH (09:03)
[2021-10-16] MEDS: ASPIRIN 81 MG ECTAB PO SCH (09:03)
[2021-10-16] MEDS: PYRIDOXINE HCL 50 MG TAB PO SCH (09:03)
[2021-10-16] MEDS: CYANOCOBALAMIN (B-12) 500 MCG TABLET PO SCH (09:03)
[2021-10-16 10:02] LABS: Hematocrit (blood only) 34.7 % (40.1-51.0); Hemoglobin 11.8 g/dl (14.0-18.0); Mean Corpuscular Hemoglobin 28.7 pg (25.0-34.0); Mean Corpuscular Volume 84.4 fL (80.0-100.0); Mean Platelet Volume 11.1 fL (9.4-12.4); Platelet Count 157 K/uL (130-400); RDW Coefficient of Variation 15.6 % (11.5-14.5); RDW Standard Deviation 47.5 fL (36.4-46.3); Red Blood Count 4.11 M/uL (4.63-6.08); White Blood Count 15.96 K/ul (4.8-10.8)
[2021-10-16 10:49] LABS: Calcium 8.4 mg/dl (8.5-10.1); Creatinine Clr Calc Pharmacy 86.2 ml/min; Est GFR (African American) 72.1 ml/min; Est GFR (Non-African American) 62.2 ml/min
[2021-10-16 10:50] LABS: Estimated Average Glucose 137 mg/dl; Hemoglobin A1C 6.4 % (4.5-5.6)
[2021-10-16] MEDS ORDERED: KETOTIFEN~ORDER AWAITING ACTION SCH (16:00)
--- NOTE | 2021-10-19 13:28 | Discharge Summary ---
Date of Service October 19, 2021 Admission HPI Per Admitting Provider This is a patient with a hx of chronic right knee pain. He has been treated conservatively for right knee DJD for many years. The conservative tx's are no longer helping his knee pain. He is now being set up for surgical tx. Principal Diagnosis Right knee osteoarthritis Discharge Exam Constitutional well developed and well nourished; no acute distress ENMT external ear and nose normal, oropharynx normal Neck trachea midline Respiratory normal respiratory effort, lungs clear to auscultation Cardiovascular Rate/Rhythm: regular rate and regular rhythm Gastrointestinal (Abdomen) normal bowel sounds, soft, nontender, no hepatosplenomegaly Musculoskeletal Knee: + surgical incision (Right knee: Anterior knee incision covered with Silverlon dressing. C/D/I.); no skin erythema and no ecchymosis Skin no rashes, warm and dry Trauma: no evidence of skin trauma Neurologic normal touch/pain/proprioception Psychiatric A+Ox3, euthymic affect Speech: normal rate/rhythm/volume of speech Lymphatic no cervical or axillary lymphadenopathy Discharge Data Allergies Allergy/AdvReac Type Severity Reaction Status Date / Time No Known Allergies Allergy Verified 10/15/21 07:25 Procedures Performed Operation Date: 10/15/21 08:45 Actual Procedures p Right Total Knee Arthroplasty(Right) - Ben Kolb, Ordered Studies 10/15/21 05:00 US - OR guided needle placemen Routine Hospital Course (1) Status post total right knee replacement: POD #1 s/p right TKA pt/ot dvt proph with JACK/SCD/ASA plan for d/c later today Total Time Total Time Spent Total Time Spent (In Minutes): 20 Discharge Plan Discharge Items [facility] Disposition: [facility] Reason For Visit: Right Knee Osteoarthritis Discharge Diagnosis: Right knee osteoarthritis Activity: Resume your previous activity Weightbearing Comment: wbat with walker Non-emergency contact: Surgeon Call non-emergency contact if: your pain is not controlled, your pain is worsening and your temperature is above 101 Follow-up/Referrals: Tommy SEARS [Primary Care Provider] - Diet: Regular Addtl Attending Provider Instructions: ACTIVITY RECOMMENDATIONS: SELF CARE INSTRUCTIONS AFTER TOTAL KNEE REPLACEMENT A. You may need to continue a physical therapy program after discharge from the hospital. There are several options available to you. Your doctor will assist you in selecting the best one for you. 1. An out-patient facility 2 to 3 times a week for therapy or home therapy. 2. Continue working on all exercises taught to you in the hospital. Your goals should be to increase bending of your knee to 90 degrees and beyond and to fully straighten your knee. B. You may progress at your own pace from walking with a walker or crutches to a cane; then to no assistive devices. C. Make walking a part of your daily routine. Be up as much as comfortable with rest periods throughout the day. Rest with leg elevation is very important. Use the ice wrap frequently for the first 3-4 weeks. D. There are no restrictions on activities. You may ride in a car, shop, participate in magnetizer and all social activities. E. Wear the long elastic stockings (JACK hose) 20 hours a day for one month after surgery. They can be removed several times a day for laundering and for a bath. F. Silverlon: You have a Silverlon dressing on the right knee incision. It will remain in place for 7 days from the day of your surgery. After 7 days, you may remove the dressing, just as you would remove a bandaid. You may shower with the Silverlon dressing in place. However, if you notice any water within the dressing, the dressing should be removed. You may cover the incision with a dry dressing once the Silverlon is removed if there is any drainage. SPECIAL CARE INSTRUCTIONS: VERY IMPORTANT TO READ AND REVIEW A. Take Aspirin (blood thinning medications) as directed by your doctor. If on Coumadin, have a pro-time (blood test) drawn according to your doctor's instructions. This will tell the doctor how well the Coumadin is thinning your blood. B. There are a few signs you need to watch for after you are home. Call [facility] [place] if you notice any of the followin. Increased severe knee pain. Some pain is expected especially when you exercise. 2. Increased swelling in your leg or knee; pain or swelling of the calf muscle in either lower leg. 3. Any fluid drainage from the incision. 4. Shortness of breath or chest pain. C. Please call [facility] at if you have any concerns or questions about your operation or recovery. The doctor or his nurse will return your call promptly. D. You must take antibiotics before dental work, bladder, bowel or other surgery. Your doctor will provide you with a permanent care to carry describing this precaution. * CALL IF INCREASED PAIN, REDNESS, DRAINAGE OR FEVER GREATER THAT 101 F. * WEAR JACK HOSE 20 HOURS PER DAY FOR 4 WEEKS. FOLLOW UP VISIT: If appointment is not already scheduled: Please call [facility] [place] to make a follow-up appointment for 2 weeks after your surgery to have ann removed at . Pending Studies at Discharge: No Skilled Items Patient informed of condition?: Yes DNR: No Discharge Level of Care: Other Communicable Disease: No Discharge Prognosis: Stable Lines: None Urinary Catheter: No Medications and DC Order Prescriptions: New aspirin 81 mg Tablet,Delayed Release (Dr/Ec) 81 mg PO BID 30 Days Qty: 60 0RF acetaminophen [Tylenol Extra Strength] 500 mg Tablet 1,000 mg PO Q8 21 Days Qty: 126 0RF oxycodone 5 mg Tablet 5 - 10 mg PO Q6H PRN (Reason: pain) Qty: 30 0RF Continued multivitamin Tablet 1 tab PO QAM celecoxib [Celebrex] 200 mg Capsule 200 mg PO BID calcium 600 mg Capsule 600 mg PO QAM bumetanide 2 mg Tablet 2 mg PO QAM pravastatin 40 mg Tablet 40 mg PO HS ketotifen fumarate 0.025 % (0.035 %) Drops 1 drp OPHTHALMIC (EYE) BID PRN (Reason: NEEDED) atenolol [Tenormin] 25 mg Tablet 25 mg PO BID azathioprine [Imuran] 50 mg Tablet 100 mg PO QAM Lactobacillus acidophilus Tablet 2,000 mmu cells PO BID ascorbic acid (vitamin C) [Vitamin C] 500 mg Tablet 500 mg PO QAM ferrous sulfate 325 mg (65 mg iron) Tablet 325 mg PO QAM losartan 25 mg Tablet 25 mg PO QAM folic acid 1 mg Tablet 1 mg PO QAM cyanocobalamin (vitamin B-12) 1,000 mcg Tablet, Sublingual 1,000 mcg SUBLINGUAL QAM pyridoxine (vitamin B6) [Vitamin B-6] 100 mg Tablet 100 mg PO QAM Gaviscon Extra Strength 160-105 mg Tablet,Chewable 2 tab PO QID PRN (Reason: REFLUX) loratadine 10 mg Tablet 10 mg PO QAM cholecalciferol (vitamin D3) [Vitamin D3] 25 mcg (1,000 unit) Tablet 50 mcg PO QAM metformin 850 mg Tablet 850 mg PO QAM pantoprazole [Protonix] 40 mg Tablet,Delayed Release (Dr/Ec) 40 mg PO BID Cimzia 400 mg/2 mL (200 mg/mL x 2) Syringe Kit 400 mg SUBCUT Q21D Discontinued aspirin 81 mg Tablet 81 mg PO QAM Admission Data Admit Date/Time: 10/15/21 08:57 Attending Provider: Ben Kolb Admit Provider: Ben Kolb Primary Care Provider: Tommy SEARS Other Interventions: Discharge Summary Assessment (RN) Last Done: 10/16/21 13:25
== END 2021-10-16 16:41 ==
LOC: ASU 06:55 → 3E 06:55